=== PATIENT | female | born 1975 | race Two or more races ===

== ENCOUNTER 2023-04-07 03:03 | Emergency (ER) | payer BC ==
[~2023-04-07] VITALS: Ht 144.8 cm; Wt 52.6 kg
[2023-04-07] MEDS ORDERED: CARVEDILOL ER40 MG (03:10)
[2023-04-07] MEDS ORDERED: LOSARTAN POTAS100 MG (03:10)
[2023-04-07] MEDS ORDERED: AMLODIPINE-OLM1 EAC2 (03:11)
[2023-04-07] MEDS ORDERED: KETO10TA2 PO ×2 (06:37→06:41)
== END 2023-04-07 06:52 | disposition home or self-care (01) ==
LOC: ER 03:04
DX: M25.512 Pain in left shoulder (principal); I10 Essential (primary) hypertension